=== PATIENT | male | born 1975 | race Caucasian/White ===

== ENCOUNTER 2018-11-11 11:32 | Emergency (ER) | payer BC ==
[2018-11-11] MEDS ORDERED: ONDANSETRON HCL INJ/PF 4 MG/2 ML SDV IV ONE (11:55)
--- NOTE | 2018-11-11 11:57 | ER Document Report ---
ED Medical Screen (RME) - General Chief Complaint: Vomiting Stated Complaint: HEADACHE Time Seen by Provider: 11/11/18 11:55 Mode of Arrival: Ambulatory Information source: Patient Notes: 43-year-old male presented to ED for complaint of vomiting too many times to count starting this a.m. He states he also developed a headache this morning. He was sent to the emergency room by urgent care because his blood pressure was elevated. When I checked his blood pressure in the pit 3 it was 184/107. He states he was taken blood pressure medicine at one time but is not for a long time. He is alert oriented respirations regular and unlabored speaking in full sentences. He states similar thing happened about a month ago. He states he had nausea vomiting and headache but did not go to the doctor this time he came to the doctor. I have greeted and performed a rapid initial assessment of this patient. A comprehensive ED assessment and evaluation of the patient, analysis of test results and completion of medical decision making process will be conducted by an additional ED providers. Dictation of this chart was performed using voice recognition software; therefore, there may be some unintended grammatical errors. TRAVEL OUTSIDE OF THE [place] IN LAST 30 DAYS: No - Related Data Allergies/Adverse Reactions: No Known Allergies Allergy (Unverified 11/11/18 11:41) Past Medical History - Social History Chew tobacco use (# tins/day): No Frequency of alcohol use: Occasional Drug Abuse: None - Past Medical History Cardiac Medical History: Reports: Hx Hypertension Renal/ Medical History: Denies: Hx Peritoneal Dialysis Physical Exam - Vital signs Vitals: Temp Pulse Resp BP Pulse Ox 98.1 F 95 13 189/121 H 97 11/11/18 11:36 11/11/18 11:36 11/11/18 11:36 11/11/18 11:36 11/11/18 11:36 Course - Vital Signs Vital signs: Temp Pulse Resp BP Pulse Ox 98.1 F 95 13 189/121 H 97 11/11/18 11:36 11/11/18 11:36 11/11/18 11:36 11/11/18 11:36 11/11/18 11:36
[2018-11-11 12:38] LABS: ABSOLUTE LYMPHOCYTES (AUTO) 0.9 10^3/uL (0.5-4.7); ABSOLUTE MONOCYTES (AUTO) 0.3 10^3/uL (0.1-1.4); ABSOLUTE NEUT (AUTO) 11.2 10^3/uL (1.7-8.2); BASOPHILS % (AUTO) 0.2 % (0-2); HEMATOCRIT 45.9 % (37.9-51.0); HEMOGLOBIN 15.6 g/dL (13.5-17.0); LYMPHOCYTES % (AUTO) 7.5 % (13-45); MEAN CORPUSCULAR HEMOGLOBIN 28.8 pg (27.0-33.4); MEAN CORPUSCULAR HGB CONC 34.1 g/dL (32.0-36.0); MEAN CORPUSCULAR VOLUME 85 fl (80-97); PLATELET COUNT 279 10^3/uL (150-450); RED BLOOD COUNT 5.44 10^6/uL (4.35-5.55); RED CELL DISTRIBUTION WIDTH 13.3 % (11.5-14.0); SEGMENTED NEUTROPHILS % (AUTO) 90.3 % (42-78); TOTAL CELLS COUNTED % (AUTO) 100 %; WHITE BLOOD COUNT 12.4 10^3/uL (4.0-10.5)
--- NOTE | 2018-11-11 12:40 | RADIOLOGY REPORT (SQ) ---
EXAM DESCRIPTION: CT HEAD WITHOUT COMPLETED DATE/TIME: 11/11/2018 12:31 pm REASON FOR STUDY: headache COMPARISON: None. TECHNIQUE: Axial images acquired through the brain without intravenous contrast. Images reviewed wi th bone, brain and subdural windows. Additional sagittal and coronal reconstructions were generated. Images stored on PACS. All CT scanners at this facility use dose modulation, iterative reconstruction, and/or weight based d osing when appropriate to reduce radiation dose to as low as reasonably achievable (ALARA). [facility]: Dose Right [facility]: CareDose [facility]: Dose Right [facility]: Teradose 4D [facility]: RFIDeas RADIATION DOSE: CT Rad equipment meets quality standard of care and radiation dose reduction techniq ues were employed. CTDIvol: 53.2 mGy. DLP: 991 mGy-cm. mGy. LIMITATIONS: None. FINDINGS: VENTRICLES: Normal size and contour. CEREBRUM: No masses. No hemorrhage. No midline shift. No evidence for acute infarction. Normal gra y/white matter differentiation. No areas of low density in the white matter. CEREBELLUM: No masses. No hemorrhage. No alteration of density. No evidence for acute infarction. EXTRAAXIAL SPACES: No fluid collections. No masses. ORBITS AND GLOBE: No intra- or extraconal masses. Normal contour of globe without masses. CALVARIUM: No fracture. PARANASAL SINUSES: No fluid or mucosal thickening. SOFT TISSUES: No mass or hematoma. OTHER: No other significant finding. IMPRESSION: NORMAL BRAIN CT WITHOUT CONTRAST. EVIDENCE OF ACUTE STROKE: NO. COMMENT: Quality ID # [id number]: Final reports with documentation of one or more dose reduction techniques (e.g., Automated exposure control, adjustment of the mA and/or kV according to patient size, use of iterative reconstruction technique) TECHNICAL DOCUMENTATION: JOB ID: [id number] [employer]- All Rights Reserved Reading location - IP/workstation name: [email or web address]
[2018-11-11 12:45] LABS: APPEARANCE,URINE SLIGHTLY-CLOUDY; BILIRUBIN,URINE NEGATIVE (NEGATIVE); COLOR,URINE YELLOW; GLUCOSE, URINE NEGATIVE (NEGATIVE); KETONES,URINE TRACE mg/dL (NEGATIVE); LEUKOCYTE ESTERASE,URINE NEGATIVE (NEGATIVE); NITRITE,URINE NEGATIVE (NEGATIVE); PROTEIN,URINE 100 mg/dL (NEGATIVE); URINE SPECIFIC GRAVITY 1.019; UROBILINOGEN,URINE NEGATIVE mg/dL (<2.0)
[2018-11-11 12:57] LABS: ALANINE AMINOTRANSFERASE 66 U/L (21-72); ALBUMIN 5.1 g/dL (3.5-5.0); ALKALINE PHOSPHATASE 70 U/L (38-126); ANION GAP 13 (5-19); ASPARTATE AMINO TRANSFERASE 37 U/L (17-59); BILIRUBIN,DIRECT 0.2 mg/dL (0.0-0.4); BILIRUBIN,TOTAL 0.6 mg/dL (0.2-1.3); BLOOD UREA NITROGEN 16 mg/dL (7-20); CALCIUM 10.5 mg/dL (8.4-10.2); CARBON DIOXIDE 28 mmol/L (22-30); CHLORIDE 101 mmol/L (98-107); GLUCOSE 122 mg/dL (75-110); LIPASE 78.4 U/L (23-300); POTASSIUM 4.2 mmol/L (3.6-5.0); SODIUM 141.6 mmol/L (137-145); TOTAL PROTEIN 8.5 g/dL (6.3-8.2)
[2018-11-11] MEDS ORDERED: AMLODIPINE BESYLATE 5 MG TABLET PO ONE (12:58)
[2018-11-11] MEDS ORDERED: HYDRALAZINE HCL INJ/PF 20 MG/1 ML SDV IV ONE (12:58)
[2018-11-11] MEDS ORDERED: DIPHENHYDRAMINE HCL 50 MG/ML VIAL IV ONE (13:00)
[2018-11-11] MEDS ORDERED: METOCLOPRAMIDE HCL INJ/PF 10 MG/2 ML SDV IV ONE (13:00)
--- NOTE | 2018-11-11 13:03 | ER Document Report ---
ED General - General Chief Complaint: Vomiting Stated Complaint: HEADACHE Time Seen by Provider: 11/11/18 11:55 Primary Care Provider: [facility] [Provider Group] - Follow up in 3-5 days [facility] [Provider Group] - Follow up in 3-5 days Mode of Arrival: Ambulatory TRAVEL OUTSIDE OF THE [place] IN LAST 30 DAYS: No - HPI Notes: Patient is a 43-year-old male that presents to the emergency department for chief complaint of headache and vomiting. Patient reports history of hypertension which he has been noncompliant with for the last year. He states he was diagnosed in 2016 and used to take amlodipine or losartan. Patient has not had a primary care doctor or the money to afford prescriptions since mid last year. Today he states he woke up with a headache that was generalized and throbbing in nature. He states it became severe within 10 minutes of waking up. He denies any aggravating factors including photophobia, phonophobia and position changes. He denies any vision changes numbness or weakness. Patient has not taken any medication for the headache. Patient reports after the pain became severe he started vomiting. He did receive Zofran in triage and states that the nausea has resolved. He denies any associated fever, chills, abdominal pain, urinary frequency or decreased urination, or recent illness. Past Medical History: Hypertension Past Surgical History: Negative Social History: Denies tobacco and alcohol use Family History: Reviewed and noncontributory for presenting illness Allergies: Reviewed, see documented allergy list. REVIEW OF SYSTEMS: CONSTITUTIONAL : No fever No chills No diaphoresis No recent illness EENT: No vision changes No congestion No sore throat CARDIOVASCULAR: No chest pain No palpitations RESPIRATORY: No shortness of breath No cough No difficulty breathing GASTROINTESTINAL: No abdominal pain nausea vomiting No diarrhea GENITOURINARY: No dysuria No hematuria No difficulty urinating MUSCULOSKELETAL: No back pain No leg pain No arm pain SKIN: No rashes No lesions LYMPHATIC: No swollen, enlarged glands. NEUROLOGICAL: No lightheadedness headache No weakness No paresthesias PSYCHIATRIC: No anxiety No depression PHYSICAL EXAMINATION: Vital signs reviewed, nursing noted reviewed. GENERAL: Well-appearing, well-nourished and in no acute distress. HEAD: Atraumatic, normocephalic. EYES: Eyes appear normal, extraocular movements intact, sclera anicteric, conjunctiva are normal. ENT: nares patent, oropharynx clear without exudates. Moist mucous membranes. NECK: Normal range of motion, supple without lymphadenopathy LUNGS: Breath sounds clear to auscultation bilaterally and equal. No wheezes rales or rhonchi. HEART: Regular rate and rhythm without murmurs ABDOMEN: Soft, nontender, normoactive bowel sounds. No rebound, guarding, or rigidity. No masses appreciated. EXTREMITIES: Nontender, good range of motion, no pitting or edema. NEUROLOGICAL: No focal neurological deficits. Moves all extremities spontaneously Motor and sensory grossly intact on exam. PSYCH: Normal mood, normal affect. SKIN: Warm, Dry, normal turgor, no rashes or lesions noted on exposed skin - Related Data Allergies/Adverse Reactions: No Known Allergies Allergy (Unverified 11/11/18 11:41) Past Medical History - General Information source: Patient - Social History Smoking Status: Unknown if Ever Smoked Chew tobacco use (# tins/day): No Frequency of alcohol use: Occasional Drug Abuse: None Family History: Reviewed & Not Pertinent Patient has suicidal ideation: No Patient has homicidal ideation: No - Past Medical History Cardiac Medical History: Reports: Hx Hypertension Renal/ Medical History: Denies: Hx Peritoneal Dialysis Physical Exam - Vital signs Vitals: Temp Pulse Resp BP Pulse Ox 98.1 F 95 13 189/121 H 97 11/11/18 11:36 11/11/18 11:36 11/11/18 11:36 11/11/18 11:36 11/11/18 11:36 Course - Re-evaluation Re-evalutation: 11/11/18 13:02 Vitals reviewed. Nursing notes reviewed. Patient is hypertensive at presentation. He was ordered medication for his hypertension. Patient's initial CT brain shows no intracranial hemorrhage. His onset of symptoms were about 6-1/[address] scan. He does have significant elevated blood pressure and CTA will be ordered to evaluate for aneurysm. 11/11/18 13:47 Patient reevaluated. CTA of the head shows no acute intracranial aneurysm or hemorrhage. Patient is having improvement of his headache after medications and decrease in blood pressure. His current blood pressure is 159/100. I did discuss the possibility of intracranial hemorrhage with him given that his presentation was outside the 6-hour window for CT scan of the brain. Patient does not wish to have lumbar puncture performed. He understands that without lumbar puncture there is a chance that there is some intracranial hemorrhage which is causing his headache. He is still neurologically intact. He understands the risks and benefits of the procedure as well as not performing it. Patient will be given Tylenol for further headache control. 11/11/18 14:08 Patient continued to have improvement of his headache with blood pressure control. He has now received an, hydralazine, and clonidine. His current blood pressure is 146/101. Patient states his headache has almost completely resolved. He has required multiple medical managements to get his blood pressure lower and I did recommend admission to the hospital for observation and continued blood pressure management. Patient has refused admission to the hospital stating he needs to get home to give his dog and insulin injection. Patient is aware that he can return to the emergency room at any point in time for further management. He will be started on Norvasc at home. He was given the phone number for the [facility] and [facility] and encouraged to follow-up with whoever can see him soonest for repeat BP and further management of his uncontrolled hypertension. Patient has capacity to make his medical decisions and is neurologically intact at discharge Laboratory 11/11/18 11/11/18 11/11/18 12:05 12:05 12:05 WBC 12.4 H RBC 5.44 Hgb 15.6 Hct 45.9 MCV 85 MCH 28.8 MCHC 34.1 RDW 13.3 Plt Count 279 Seg Neutrophils % 90.3 H Lymphocytes % 7.5 L Monocytes % 2.0 L Eosinophils % 0.0 Basophils % 0.2 Absolute Neutrophils 11.2 H Absolute Lymphocytes 0.9 Absolute Monocytes 0.3 Absolute Eosinophils 0.0 Absolute Basophils 0.0 Sodium 141.6 Potassium 4.2 Chloride 101 Carbon Dioxide 28 Anion Gap 13 BUN 16 Creatinine 0.84 Est GFR ( Amer) > 60 Est GFR (Non-Af Amer) > 60 Glucose 122 H Calcium 10.5 H Total Bilirubin 0.6 Direct Bilirubin 0.2 Neonat Total Bilirubin Not Reportable Neonat Direct Bilirubin Not Reportable Neonat Indirect Bili Not Reportable AST 37 ALT 66 Alkaline Phosphatase 70 CK-MB (CK-2) 1.12 Troponin I Total Protein 8.5 H Albumin 5.1 H Lipase 78.4 Urine Color Urine Appearance Urine pH Ur Specific [place] Urine Protein Urine Glucose (UA) Urine Ketones Urine Blood Urine Nitrite Urine Bilirubin Urine Urobilinogen Ur Leukocyte Esterase Urine WBC (Auto) Urine RBC (Auto) Squamous Epi Cells Auto Urine Mucus (Auto) Urine Ascorbic Acid 11/11/18 11/11/18 12:05 12:05 WBC RBC Hgb Hct MCV MCH MCHC RDW Plt Count Seg Neutrophils % Lymphocytes % Monocytes % Eosinophils % Basophils % Absolute Neutrophils Absolute Lymphocytes Absolute Monocytes Absolute Eosinophils Absolute Basophils Sodium Potassium Chloride Carbon Dioxide Anion Gap BUN Creatinine Est GFR ( Amer) Est GFR (Non-Af Amer) Glucose Calcium Total Bilirubin Direct Bilirubin Neonat Total Bilirubin Neonat Direct Bilirubin Neonat Indirect Bili AST ALT Alkaline Phosphatase CK-MB (CK-2) Troponin I < 0.012 Total Protein Albumin Lipase Urine Color YELLOW Urine Appearance SLIGHTLY-CLOUDY Urine pH 5.0 Ur Specific [place] 1.019 Urine Protein 100 H Urine Glucose (UA) NEGATIVE Urine Ketones TRACE H Urine Blood NEGATIVE Urine Nitrite NEGATIVE Urine Bilirubin NEGATIVE Urine Urobilinogen NEGATIVE Ur Leukocyte Esterase NEGATIVE Urine WBC (Auto) 2 Urine RBC (Auto) 1 Squamous Epi Cells Auto <1 Urine Mucus (Auto) OCC Urine Ascorbic Acid [address] 11/11/18 12:12 IMPRESSION: NORMAL BRAIN CT WITHOUT CONTRAST. EVIDENCE OF ACUTE STROKE: NO. Head CTA 11/11/18 12:58 IMPRESSION: NO CTA EVIDENCE OF STENOSIS OR ANEURYSM OF [place]. - Vital Signs Vital signs: Temp Pulse Resp BP Pulse Ox 98.1 F 95 19 159/100 H 94 11/11/18 11:36 11/11/18 11:36 11/11/18 13:31 11/11/18 13:31 11/11/18 13:31 - Laboratory Result Diagrams: 11/11/18 12:05 11/11/18 12:05 Laboratory results interpreted by me: 11/11/18 11/11/18 11/11/18 12:05 12:05 12:05 WBC 12.4 H Seg Neutrophils % 90.3 H Lymphocytes % 7.5 L Monocytes % 2.0 L Absolute Neutrophils 11.2 H Glucose 122 H Calcium 10.5 H Total Protein 8.5 H Albumin 5.1 H Urine Protein 100 H Urine Ketones TRACE H Urine Ascorbic Acid 40 H - EKG Interpretation by Me Additional EKG results interpreted by me: 11/11/18 13:28 interpreted by myself 1325: NSR, rate 97, left axis, no ectopy, no STEMI, diffuse T wave flattening Discharge - Discharge Clinical Impression: Nonadherence to medical treatment Hypertension Qualifiers: Hypertension type: unspecified Qualified Code(s): I10 - Essential (primary) hypertension Cephalgia Qualifiers: Headache type: unspecified Headache chronicity pattern: acute headache Intractability: not intractable Qualified Code(s): R51 - Headache Condition: Stable Disposition: HOME, SELF-CARE Instructions: Headache ([facility]), High Blood Pressure ([facility]) Additional Instructions: Please return to the emergency department if you have any worsening, or concern of your symptoms. Please return to the emergency department if you develop chest pain, difficulty breathing, severe abdominal pain, or ongoing vomiting. Please follow-up with your primary care physician in 2-3 days and any other recommended physicians. If prescribed, take all medications as directed. If you have any questions or concerns do not hesitate to return the emergency department for evaluation. Please follow with primary care to establish and to continue to receive blood pressure medications. Prescriptions: Amlodipine Besylate [Norvasc 5 mg Tablet] 5 mg PO DAILY #30 tablet Forms: Elevated Blood Pressure Referrals: [facility] [Provider Group] - Follow up in 3-5 days [facility] [Provider Group] - Follow up in 3-5 days
--- NOTE | 2018-11-11 13:31 | RADIOLOGY REPORT (SQ) ---
EXAM DESCRIPTION: CTA HEAD COMPLETED DATE/TIME: 11/11/2018 1:21 pm REASON FOR STUDY: headache COMPARISON: None. TECHNIQUE: Post IV contrast scanning, thin section axial imaging through the brain to evaluate the a rterial structures. Source and MIP images are saved and reviewed on PACS. Advanced 3D imaging as volume-rendering, MIPs, SSD performed? yes All CT scanners at this facility use dose modulation, iterative reconstruction, and/or weight based d osing when appropriate to reduce radiation dose to as low as reasonably achievable (ALARA). [facility]: Dose Right [facility]: CareDose [facility]: Dose Right [facility]: Teradose 4D [facility]: [employer] CONTRAST TYPE AND DOSE: contrast/concentration: Isovue 350.00 mg/ml; Total Contrast Delivered: 70.0 ml; Total Saline Delivered: 75.0 ml RENAL FUNCTION: None required. The patient is less than 50 years old. LIMITATIONS: None. FINDINGS: [place]: The anterior, middle, posterior cerebral arteries are all patent. No ev idence of aneurysm or focal stenosis. POSTERIOR CIRCULATION: The distal vertebral arteries are patent as is the basilar artery. No aneurysm . BRAIN: Normal. BONES: Intact as visualized. SINUSES: No fluid or mucosal thickening. OTHER: No other significant finding. IMPRESSION: NO CTA EVIDENCE OF STENOSIS OR ANEURYSM OF THE [place]. TECHNICAL DOCUMENTATION: JOB ID: [id number] Quality ID # [id number]: Final reports with documentation of one or more dose reduction techniques (e.g., Au tomated exposure control, adjustment of the mA and/or kV according to patient size, use of iterative reconstruction technique) 2010 [employer]- All Rights Reserved Reading location - IP/workstation name: [email or web address]
[2018-11-11] MEDS ORDERED: MORPHINE SULFATE 10 MG/ML INJ IV ONE (13:39)
[2018-11-11] MEDS ORDERED: ACETAMINOPHEN 325 MG TABLET PO ONE (13:46)
[2018-11-11] MEDS ORDERED: CLONIDINE HCL 0.1 MG TABLET PO ONE (13:48)
[2018-11-11 14:10] VITALS: BP 146/101
--- NOTE | 2018-11-11 15:51 | EKG REPORT ---
SEVERITY:- BORDERLINE ECG - SINUS RHYTHM LEFT AXIS DEVIATION BORDERLINE T WAVE ABNORMALITIES : Confirmed by: Matthew Bush MD 11-Nov-2018 15:50:17
== END 2018-11-11 14:22 | disposition home or self-care (01) ==
LOC: ER 11:32
DX: I10 Essential (primary) hypertension (principal); T46.5X6A Underdosing of other antihypertensive drugs, initial encounter; Z91.120 Patient's intentional underdosing of medication regimen due to financial hardship; Z91.14 Patient's other noncompliance with medication regimen; R51 Headache; R11.2 Nausea with vomiting, unspecified
CPT/HCPCS: 93005; 99284; 96374; 96375; 36415; 82553; 83690; 85025; 80053; 81001; 84484; 70450; 70496; 93010; J1200; J0360; J2765; J2405